=== PATIENT | female | born 1965 | race Caucasian/White ===

== ENCOUNTER 2017-07-15 21:47 | Emergency (ER) | payer OTHER ==
[2017-07-15] MEDS ORDERED: SODIUM CHLORIDE 0.9% 1,000 ML IV STA (21:51)
[2017-07-15] MEDS ORDERED: RX INFO: IV CONTRAST WAS GIVEN 1 EACH MISC MISCELLANE PRN (21:51)
[2017-07-15 21:53] LABS: Glucose,Whole Blood 160 mg/dL (75-99)
[2017-07-15] MEDS ORDERED: FAMOTIDINE 20 MG/2 ML VIAL IV STA (22:00)
[2017-07-15] MEDS ORDERED: diphenhydrAMINE 50 MG/ML 1 ML VIAL IVP STA (22:00)
[2017-07-15] MEDS ORDERED: methylPREDNISolone SOD SUCCI 125 MG/2 ML VIAL IV STA (22:00)
[2017-07-15 22:03] LABS: Basophils % (A) 0 %; Eosinophils # (A) 0.1 k/uL (0-0.7); Eosinophils % (A) 1 %; HCT 39.4 % (34.0-46.0); HGB 13.2 gm/dL (11.4-16.0); Lymphocytes # (A) 4.2 k/uL (1.0-4.8); Lymphocytes % (A) 27 %; MCH 30.3 pg (25.0-35.0); MCHC 33.6 g/dL (31.0-37.0); MCV 90.1 fL (80.0-100.0); Mean Platelet Volume 8.5; Monocytes # (A) 0.6 k/uL (0-1.0); Monocytes % (A) 4 %; Neutrophils # (A) 10.2 k/uL (1.3-7.7); Neutrophils % (A) 67 %; Platelet Count 322 k/uL (150-450); RBC 4.37 m/uL (3.80-5.40); RDW 12.6 % (11.5-15.5); WBC 15.2 k/uL (3.8-10.6)
[2017-07-15 22:11] LABS: INR 1.1 (<1.2); Prothrombin Time 10.8 sec (9.0-12.0)
[2017-07-15 22:13] LABS: Creatine Kinase 121 U/L (30-135)
[2017-07-15 22:16] LABS: ALT 66 U/L (9-52); AST 76 U/L (14-36); Albumin 4.3 g/dL (3.5-5.0); Alcohol <10 mg/dL; Alkaline Phosphatase 56 U/L (38-126); Amylase 63 U/L (30-110); Anion Gap 13 mmol/L; Blood Urea Nitrogen 23 mg/dL (7-17); Calcium 9.5 mg/dL (8.4-10.2); Carbon Dioxide 22 mmol/L (22-30); Chloride 106 mmol/L (98-107); Glucose 141 mg/dL (74-99); Lipase 84 U/L (23-300); Potassium 3.7 mmol/L (3.5-5.1); Sodium 141 mmol/L (137-145); Total Bilirubin 0.3 mg/dL (0.2-1.3); Total Protein 7.3 g/dL (6.3-8.2)
[2017-07-15 22:26] LABS: Creatine Kinase MB 0.8 ng/mL (0.0-2.4); Troponin I <0.012 ng/mL (0.000-0.034)
[2017-07-15 22:28] LABS: Partial Thromboplastin Time 21.1 sec (22.0-30.0)
--- NOTE | 2017-07-15 22:28 | CT ---
EXAMINATION TYPE: CT brain cruz joyner con DATE OF EXAM: 07/15/2017 COMPARISON: NONE HISTORY: Fall headache. Neck pain. CT DLP: 2334.5 mGycm Automated exposure control for dose reduction was used. TECHNIQUE: CT scan of the head and cervical spine are performed without contrast. FINDINGS: Ventricles have normal size. There is no mass effect nor midline shift. There is no sign of intracranial hemorrhage. The calvarium is intact. There is right parietal scalp hematoma. There is evidence of laceration. Exam is limited by motion. The cervical vertebra have normal spacing and alignment. Posterior elements are intact. Facet joints appear intact. Skull base appears intact. There is no evidence of a fracture of the cervical spine. T here is noted comminuted fracture right clavicle. IMPRESSION: Negative CT scan of the brain. Right parietal scalp hematoma. Laceration. Mild spurring at C4-5 anteriorly. Comminuted right clavicle fracture.
[2017-07-15 22:33] VITALS: BP 123/74; PULSE 96; RESP 18; TEMP 97.6
--- NOTE | 2017-07-15 22:36 | ED ---
Altered Mental Status HPI - General Stated Complaint: Fell downstairs head injury Time Seen by Provider: 07/15/17 21:51 - History of Present Illness Initial Comments: 52 years old female she was at the second story of her house and then accidentally she fell down she fell from approximately 8 feet height she landed on a hardwood floor with this was one of the nephews at home he said she hit her head for she came down head first after the fall immediately after that there was a change in mental status she did she seek Talking Conversation didn't make any sense at all I spoke with the and with the daughter had just arrived he did not witness the fall daughter was in there with the time she fell but I did speak with the nephew who was at home about the fall no tibia system is available she is confused she does follow commands her conversation doesn't make any sense - Related Data Home Medications Medication Instructions Recorded Confirmed No Known Home Medications [No 07/15/17 07/15/17 Known Home Medications] Allergies Allergy/AdvReac Type Severity Reaction Status Date / Time diphtheria,pertussis Allergy Unknown Verified 07/15/17 23:08 (acell),tetanu Childhood Tetanus Vaccines and Toxoid Allergy Unknown Verified 07/15/17 23:08 Childhood IV DYE Allergy Rash/Hives Uncoded 07/15/17 23:06 Review of Systems ROS Statement: Those systems with pertinent positive or pertinent negative responses have been documented in the HPI. ROS Other: All systems not noted in ROS Statement are negative. General Exam - General Exam Comments Initial Comments: General: The patient is awake she was quite confused initially Repeating same questions but then her GCS bounce back to 15 Skin: Skin is warm and dry and no rashes or lesions are noted. Eye: Pupils are equal, round and reactive to light, extra-ocular movements are intact; there is normal conjunctiva bilaterally. Ears, nose, mouth and throat: There are moist mucous membranes and no oral lesions. Neck: The neck is tender at the C3-C4 and C5 , she is also very tender over the right clavicle mid clavicle area Cardiovascular: There is a regular rate and rhythm. No murmur, rub or gallop is appreciated. Respiratory: To auscultation bilateral, poor air exchange bilaterally Gastrointestinal: Soft, non-distended, non-tender abdomen without masses or organomegaly noted. There is no rebound or guarding present. Bowel sounds are unremarkable. Back: There is some diffuse tenderness Musculoskeletal: No obvious injuries to the upper extremity and lower extremity Neurological: CN II-XII intact, Cranial nerves III through XII are intact. There are no obvious motor or sensory deficits. Coordination appears grossly intact. Speech is normal. Psychiatric: Cooperative, appropriate mood & affect, normal judgment. Course Vital Signs 07/15/17 21:47 Temperature 97.6 F Pulse Rate 96 Respiratory 18 Rate Blood Pressure 123/74 O2 Sat by Pulse 97 Oximetry EKG is normal sinus rhythm medical rate is 92 ID interval is 152 QRS duration is 72 QT/QTc is 370/469 review of this EKG does not reveal any ST elevation or ST depression Medical Decision Making - Lab Data Result diagrams: 07/15/17 21:50 07/15/17 21:50 Lab Results 07/15/17 07/15/17 07/15/17 Range/Units 21:50 21:50 21:50 WBC 15.2 H (3.8-10.6) k/uL RBC 4.37 (3.80-5.40) m/uL Hgb 13.2 (11.4-16.0) gm/dL Hct 39.4 (34.0-46.0) % MCV 90.1 (80.0-100.0) fL MCH 30.3 (25.0-35.0) pg MCHC 33.6 (31.0-37.0) g/dL RDW 12.6 (11.5-15.5) % Plt Count 322 (150-450) k/uL Neutrophils % 67 % Lymphocytes % 27 % Monocytes % 4 % Eosinophils % 1 % Basophils % 0 % Neutrophils # 10.2 H (1.3-7.7) k/uL Lymphocytes # 4.2 (1.0-4.8) k/uL Monocytes # 0.6 (0-1.0) k/uL Eosinophils # 0.1 (0-0.7) k/uL Basophils # 0.0 (0-0.2) k/uL PT (9.0-12.0) sec INR (<1.2) APTT (22.0-30.0) sec Sodium 141 (137-145) mmol/L Potassium 3.7 (3.5-5.1) mmol/L Chloride 106 (98-107) mmol/L Carbon Dioxide 22 (22-30) mmol/L Anion Gap 13 mmol/L BUN 23 H (7-17) mg/dL Creatinine 0.70 (0.52-1.04) mg/dL Est GFR (MDRD) Af Amer >60 (>60 ml/min/1.73 sqM) Est GFR (MDRD) Non-Af >60 (>60 ml/min/1.73 sqM) Glucose 141 H (74-99) mg/dL POC Glucose (mg/dL) (75-99) mg/dL POC Glu Emt/Dispatcher ID Plasma Lactic Acid Sukhdev (0.7-2.0) mmol/L Calcium 9.5 (8.4-10.2) mg/dL Total Bilirubin 0.3 (0.2-1.3) mg/dL AST 76 H (14-36) U/L ALT 66 H (9-52) U/L Alkaline Phosphatase 56 (38-126) U/L Total Creatine Kinase 121 (30-135) U/L CK-MB (CK-2) 0.8 (0.0-2.4) ng/mL CK-MB (CK-2) Rel Index 0.7 Troponin I <0.012 (0.000-0.034) ng/mL Total Protein 7.3 (6.3-8.2) g/dL Albumin 4.3 (3.5-5.0) g/dL Amylase 63 (30-110) U/L Lipase 84 (23-300) U/L Urine Color Urine Appearance (Clear) Urine pH (5.0-8.0) Ur Specific [facility] (1.001-1.035) Urine Protein (Negative) Urine Glucose (UA) (Negative) Urine Ketones (Negative) Urine Blood (Negative) Urine Nitrite (Negative) Urine Bilirubin (Negative) Urine Urobilinogen (<2.0) mg/dL Ur Leukocyte Esterase (Negative) Urine RBC (0-5) /hpf Urine WBC (0-5) /hpf Ur Squamous Epith Cells (0-4) /hpf Urine Mucus (None) /hpf Urine Opiates Screen (NotDetected) Ur Oxycodone Screen (NotDetected) Urine Methadone Screen (NotDetected) Ur Propoxyphene Screen (NotDetected) Ur Barbiturates Screen (NotDetected) U Tricyclic Antidepress (NotDetected) Ur Phencyclidine Scrn (NotDetected) Ur Amphetamines Screen (NotDetected) U Methamphetamines Scrn (NotDetected) U Benzodiazepines Scrn (NotDetected) Urine Cocaine Screen (NotDetected) U Marijuana (THC) Screen (NotDetected) Serum Alcohol <10 mg/dL Blood Type Blood Type Recheck Antibody Screen Spec Expiration Date 07/15/17 07/15/17 07/15/17 Range/Units 21:50 21:50 21:50 WBC (3.8-10.6) k/uL RBC (3.80-5.40) m/uL Hgb (11.4-16.0) gm/dL Hct (34.0-46.0) % MCV (80.0-100.0) fL MCH (25.0-35.0) pg MCHC (31.0-37.0) g/dL RDW (11.5-15.5) % Plt Count (150-450) k/uL Neutrophils % % Lymphocytes % % Monocytes % % Eosinophils % % Basophils % % Neutrophils # (1.3-7.7) k/uL Lymphocytes # (1.0-4.8) k/uL Monocytes # (0-1.0) k/uL Eosinophils # (0-0.7) k/uL Basophils # (0-0.2) k/uL PT 10.8 (9.0-12.0) sec INR 1.1 (<1.2) APTT 21.1 L (22.0-30.0) sec Sodium (137-145) mmol/L Potassium (3.5-5.1) mmol/L Chloride (98-107) mmol/L Carbon Dioxide (22-30) mmol/L Anion Gap mmol/L BUN (7-17) mg/dL Creatinine (0.52-1.04) mg/dL Est GFR (MDRD) Af Amer (>60 ml/min/1.73 sqM) Est GFR (MDRD) Non-Af (>60 ml/min/1.73 sqM) Glucose (74-99) mg/dL POC Glucose (mg/dL) (75-99) mg/dL POC Glu Emt/Dispatcher ID Plasma Lactic Acid Sukhdev 2.0 (0.7-2.0) mmol/L Calcium (8.4-10.2) mg/dL Total Bilirubin (0.2-1.3) mg/dL AST (14-36) U/L ALT (9-52) U/L Alkaline Phosphatase (38-126) U/L Total Creatine Kinase (30-135) U/L CK-MB (CK-2) (0.0-2.4) ng/mL CK-MB (CK-2) Rel Index Troponin I (0.000-0.034) ng/mL Total Protein (6.3-8.2) g/dL Albumin (3.5-5.0) g/dL Amylase (30-110) U/L Lipase (23-300) U/L Urine Color Urine Appearance (Clear) Urine pH (5.0-8.0) Ur Specific [facility] (1.001-1.035) Urine Protein (Negative) Urine Glucose (UA) (Negative) Urine Ketones (Negative) Urine Blood (Negative) Urine Nitrite (Negative) Urine Bilirubin (Negative) Urine Urobilinogen (<2.0) mg/dL Ur Leukocyte Esterase (Negative) Urine RBC (0-5) /hpf Urine WBC (0-5) /hpf Ur Squamous Epith Cells (0-4) /hpf Urine Mucus (None) /hpf Urine Opiates Screen (NotDetected) Ur Oxycodone Screen (NotDetected) Urine Methadone Screen (NotDetected) Ur Propoxyphene Screen (NotDetected) Ur Barbiturates Screen (NotDetected) U Tricyclic Antidepress (NotDetected) Ur Phencyclidine Scrn (NotDetected) Ur Amphetamines Screen (NotDetected) U Methamphetamines Scrn (NotDetected) U Benzodiazepines Scrn (NotDetected) Urine Cocaine Screen (NotDetected) U Marijuana (THC) Screen (NotDetected) Serum Alcohol mg/dL Blood Type O Positive Blood Type Recheck O Pos Antibody Screen NEGATIVE Spec Expiration Date 07/18/2017 - 234907/15/17 07/15/17 Range/Units 21:51 22:40 WBC (3.8-10.6) k/uL RBC (3.80-5.40) m/uL Hgb (11.4-16.0) gm/dL Hct (34.0-46.0) % MCV (80.0-100.0) fL MCH (25.0-35.0) pg MCHC (31.0-37.0) g/dL RDW (11.5-15.5) % Plt Count (150-450) k/uL Neutrophils % % Lymphocytes % % Monocytes % % Eosinophils % % Basophils % % Neutrophils # (1.3-7.7) k/uL Lymphocytes # (1.0-4.8) k/uL Monocytes # (0-1.0) k/uL Eosinophils # (0-0.7) k/uL Basophils # (0-0.2) k/uL PT (9.0-12.0) sec INR (<1.2) APTT (22.0-30.0) sec Sodium (137-145) mmol/L Potassium (3.5-5.1) mmol/L Chloride (98-107) mmol/L Carbon Dioxide (22-30) mmol/L Anion Gap mmol/L BUN (7-17) mg/dL Creatinine (0.52-1.04) mg/dL Est GFR (MDRD) Af Amer (>60 ml/min/1.73 sqM) Est GFR (MDRD) Non-Af (>60 ml/min/1.73 sqM) Glucose (74-99) mg/dL POC Glucose (mg/dL) 160 H (75-99) mg/dL POC Glu Emt/Dispatcher ID Ashish Solis Plasma Lactic Acid Sukhdev (0.7-2.0) mmol/L Calcium (8.4-10.2) mg/dL Total Bilirubin (0.2-1.3) mg/dL AST (14-36) U/L ALT (9-52) U/L Alkaline Phosphatase (38-126) U/L Total Creatine Kinase (30-135) U/L CK-MB (CK-2) (0.0-2.4) ng/mL CK-MB (CK-2) Rel Index Troponin I (0.000-0.034) ng/mL Total Protein (6.3-8.2) g/dL Albumin (3.5-5.0) g/dL Amylase (30-110) U/L Lipase (23-300) U/L Urine Color Yellow Urine Appearance Clear (Clear) Urine pH 5.5 (5.0-8.0) Ur Specific [facility] 1.042 H (1.001-1.035) Urine Protein 1+ H (Negative) Urine Glucose (UA) Negative (Negative) Urine Ketones Negative (Negative) Urine Blood Trace H (Negative) Urine Nitrite Negative (Negative) Urine Bilirubin Negative (Negative) Urine Urobilinogen <2.0 (<2.0) mg/dL Ur Leukocyte Esterase Negative (Negative) Urine RBC 3 (0-5) /hpf Urine WBC 2 (0-5) /hpf Ur Squamous Epith Cells 1 (0-4) /hpf Urine Mucus Many H (None) /hpf Urine Opiates Screen Not Detected (NotDetected) Ur Oxycodone Screen Not Detected (NotDetected) Urine Methadone Screen Not Detected (NotDetected) Ur Propoxyphene Screen Not Detected (NotDetected) Ur Barbiturates Screen Not Detected (NotDetected) U Tricyclic Antidepress Not Detected (NotDetected) Ur Phencyclidine Scrn Not Detected (NotDetected) Ur Amphetamines Screen Not Detected (NotDetected) U Methamphetamines Scrn Not Detected (NotDetected) U Benzodiazepines Scrn Not Detected (NotDetected) Urine Cocaine Screen Not Detected (NotDetected) U Marijuana (THC) Screen Not Detected (NotDetected) Serum Alcohol mg/dL Blood Type Blood Type Recheck Antibody Screen Spec Expiration Date Critical Care Time Total Critical Care Time: 60 Critical Care Time: She was seen within the seconds arrival to the ER, cervical spine was secured quick logroll was done no obvious injury noticed she was quite confused at that time was repeating the same question over and over the head showed a hematoma there was no laceration cervical spine tracheal February headache cervical spine was protected with the collar bilateral air exchange noticed O poor noticed some crepitus on the right side of the chest wall abdomen exam was unremarkable she was she has some tenderness and swelling over the right right clavicle she was extremely sore when we palpated her spine especially thoracic spine and upper lumbar spine no obvious neurological deficit noticed a neuro Filiberto Coma Scale jumped up to 15, CT was done, CT showed a normal brain comminuted fracture of the right clavicle multiple rib fractures him a transverse process fractures. I spoke with the [facility], centered accepted the patient, prior to that family had agreed to take patient to the [facility] patient is in a stable condition fluid resuscitation and pain medication has been given and will be continued patient be heading to [facility] Disposition Clinical Impression: Trauma, Compression fracture of body of thoracic vertebra, Rib fractures, Fracture of thoracic transverse process, Clavicle fracture Disposition: OTHER INSTITUTION NOT DEFINED Condition: Fair Referrals: Gareth Kim Jr, DO [Primary Care Provider] - 1-2 days - Out of Hospital Transfer - Req. Specs Out of Hospital Transfer - Requested Specifics: Other Emergency Center (Be going to [facility] trauma [facility])
[2017-07-15] MEDS ORDERED: ONDANSETRON 4 MG/2 ML VIAL IVP STA (22:37)
[2017-07-15] MEDS ORDERED: MORPHINE SULFATE 4 MG/ML SYRINGE IVP STA ×2 (22:42→23:09)
[2017-07-15 22:56] LABS: Appearance,Urine Clear (Clear); Bilirubin,Urine Negative (Negative); Blood,Urine Trace (Negative); Color,Urine Yellow; Glucose,Urine (UA) Negative (Negative); Ketones,Urine Negative (Negative); Leukocyte Esterase,Urine Negative (Negative); Mucus,Urine Many /hpf; PH, Urine 5.5 (5.0-8.0); Protein,Urine 1+ (Negative); RBC,Urine 3 /hpf (0-5); Specific Gravity,Urine 1.042 (1.001-1.035); Squamous Epithelial Cell,Urine 1 /hpf (0-4); Urobilinogen,Urine <2.0 mg/dL (<2.0); WBC,Urine 2 /hpf (0-5)
--- NOTE | 2017-07-15 22:57 | CT ---
EXAMINATION TYPE: CT ChestAbdPelvis w con DATE OF EXAM: 07/15/2017 COMPARISON: NONE HISTORY: Trauma. Fell down stairs CT DLP: 848.7 mGycm Automated exposure control for dose reduction was used. CONTRAST: CT scan of the chest, abdomen and pelvis is performed without Oral Contrast and with IV Contrast, pat ient injected with 100 mL of Omnipaque 300. FINDINGS: There is some pleural thickening and fluid posteriorly on the right side. There is patchy atelectasis at the right posterior lung. There is no pneumothorax. Left lung is clear. Liver shows no focal defect. Heart size is normal. There is no pericardial effusion. Spleen appears n ormal. There is no pancreatic mass. Gallbladder is somewhat contracted. There is no adrenal mass. Kidneys show satisfactory contrast opacification. There is no hydronephrosi s. There is no retroperitoneal adenopathy. There is no ascites. There is no sign of free air. Bladder distends smoothly. There is no sign of a pelvic mass. There is narrowing at L5-S1 disc with spur for mation. There is 10% anterior wedging of L1 vertebra. There is similar to 15% wedging of T12 vertebra. There is 5% wedging of T10 and 15% wedging of T7 vertebra. These fractures appear acute. There is no eviden ce of a pelvic mass. I see no intestinal wall thickening. There are no dilated loops. The bony pelvis appears intact. Proximal femurs are intact. Sacrum appears intact. I see no displaced rib fracture. There is a comminuted fracture of the midshaft of the right clavicle. Shoulder joints appear anatomic . There are fractures and dislocations involving the right transverse processes of several mid thorac ic vertebra at approximately T7. There is also fracture of the adjacent ribs and anterior dislocation of the costovertebral junction. This is adjacent to the pleural thickening. CONCLUSION: Multiple acute thoracic and lumbar compression fractures as above. Multiple fracture dislocations at the costovertebral junction of the mid thoracic spine on the right side. There is probably involvemen t of T6 T7 T8 vertebra. There is adjacent pleural thickening and atelectasis in the right lower lobe. No pneumothorax. Comminuted right clavicle fracture. No evidence of organ injury within the abdomen and pelvis.
[2017-07-15 23:04] LABS: Amphetamine Screen,Urine Not Detected (NotDetected); Barbiturate Screen,Urine Not Detected (NotDetected); Benzodiazepines Screen,Urine Not Detected (NotDetected); Cocaine Screen,Urine Not Detected (NotDetected); Methadone Screen, Urine Not Detected (NotDetected); Opiate Screen,Urine Not Detected (NotDetected); Oxycodone Screen, Urine Not Detected (NotDetected); Phencyclidine Screen,Urine Not Detected (NotDetected); Tricyclic Antidepressant,Urine Not Detected (NotDetected); Urn Cannabinoid Scrn Not Detected (NotDetected)
== END 2017-07-16 00:14 | disposition short-term general hospital (02) ==
LOC: EC 21:47
DX: S22.008A Other fracture of unspecified thoracic vertebra, initial encounter for closed fracture (principal); S22.41XA Multiple fractures of ribs, right side, initial encounter for closed fracture; S42.001A Fracture of unspecified part of right clavicle, initial encounter for closed fracture; R41.0 Disorientation, unspecified; R40.2412 Glasgow coma scale score 13-15, at arrival to emergency department; Z88.7 Allergy status to serum and vaccine; Z91.048 Other nonmedicinal substance allergy status; W10.9XXA Fall (on) (from) unspecified stairs and steps, initial encounter; Y92.009 Unspecified place in unspecified non-institutional (private) residence as the place of occurrence of the external cause
CPT/HCPCS: 36415; 93005; 86900; 86901; 80053; 82150; 82550; 82553; 83605; 83690; 84484; 85025; 85610; 85730; 86850; 81001; 80306; 80320; 72125; 70450; 71260; 74177; 99291; 96374; 96375 ×4; 96361 ×2; J2270; J1200; J2930; J2405; Q9967

== ENCOUNTER → 2017-08-26 | Outpatient (CLI) | payer SELFPAY ==
--- NOTE | 2017-08-26 14:29 | US ---
EXAMINATION TYPE: US abdomen limited DATE OF EXAM: 08/26/2017 COMPARISON: CT chest abdomen and pelvis 07/15/2017, US renal 06/01/14 CLINICAL HISTORY: R94.5 Abnormal Liver. Elevated liver enzymes. Patient fell from a second story [facility] [place] 07/15/2017. Difficult exam due to patient's broken ribs and overlying bowel gas EXAM MEASUREMENTS: Liver Length: 14.6 cm Gallbladder Wall: 0.2 cm CBD: 0.5 cm Right Kidney: 9.1 x 4.0 x 3.6 cm Pancreas: Majority Obscured by bowel gas Liver: Limited visualization due to overlying bowel gas, visualized portions appear wnl Gallbladder: wnl Evidence for sonographic Shepard's sign: No CBD: wnl as visualized, distal portion obscured by bowel gas Right Kidney: No hydronephrosis or masses seen Visualized pancreas is slightly heterogeneous without worrisome mass or ductal dilatation. Visualized liver is heterogeneously hyperechoic in appearance. No worrisome intrahepatic ductal dilatation is s een. No worrisome focal masses are identified on images saved to recent CT. No gallstones noted. IMPRESSION: Suboptimal study, heterogeneous appearance of liver could reflect mild diffuse fatty infi ltration or underlying hepatocellular disease. Imaging guided random biopsy for tissue analysis can b e performed if desired.
== END | disposition home or self-care (01) ==
LOC: RADUSWWP 09:54
PROVIDERS: ATTEND Family Medicine
DX: R93.2 Abnormal findings on diagnostic imaging of liver and biliary tract (principal); Z88.6 Allergy status to analgesic agent; Z88.7 Allergy status to serum and vaccine
CPT/HCPCS: 76705

== ENCOUNTER → 2018-09-14 | Outpatient (CLI) | payer OTHER ==
--- NOTE | 2018-09-14 09:20 | US ---
EXAMINATION TYPE: US gallbladder DATE OF EXAM: 09/14/2018 COMPARISON: CLINICAL HISTORY: R10.11 RUQ ABD PAIN. r/o gallstones per order. Patient states she feel like she is always full and bloated. EXAM MEASUREMENTS: Liver Length: 14.7 cm Gallbladder Wall: 0.2 cm CHD: 0.3 cm Right Kidney: 10.5 x 5.0 x 4.4 cm Pancreas: Appears echogenic in appearance. Tail obscured by overlying bowel gas Liver: wnl Gallbladder: wnl Evidence for sonographic Shepard's sign: neg CBD: Obscured by overlying bowel gas CHD: wnl Right Kidney: wnl IMPRESSION: 1. No distinct abnormality is seen.
== END | disposition home or self-care (01) ==
LOC: RADUSWWP 07:34
PROVIDERS: ATTEND Family Medicine
DX: R10.11 Right upper quadrant pain (principal); Z88.7 Allergy status to serum and vaccine; Z88.6 Allergy status to analgesic agent
CPT/HCPCS: 76705